=== PATIENT | male | born 1970 | race Caucasian/White ===

== ENCOUNTER 2016-10-20 01:21 | Emergency (ER) | payer OTHER ==
[2016-10-20 01:29] VITALS: RESP 16
[2016-10-20] MEDS ORDERED: DIPH,PERTUS(ACELL)TETVAC-LF 0.5 ML VIAL IM ONE (01:35)
--- NOTE | 2016-10-20 01:37 | ED ---
General Adult HPI - General Chief complaint: Head Injury Stated complaint: fall-etoh Time Seen by Provider: 10/20/16 01:25 Source: patient, RN notes reviewed Mode of arrival: wheelchair Limitations: no limitations - History of Present Illness Initial comments: This is a 45-year-old male presents to the emergency department because he was intoxicated and fell off a barstool hit his head on the ground. According to the friend he was unresponsive for about 5-6 seconds. Patient currently denies any headache patient denies neck pain. However patient is significantly intoxicated. Friend states after he hit his head and got back up he was acting at his baseline except intoxicated. Patient has no other complaints friend states he has not noticed any other injuries as well. - Related Data Allergies Allergy/AdvReac Type Severity Reaction Status Date / Time No Known Allergies Allergy Verified 10/20/16 01:29 Review of Systems ROS Statement: Those systems with pertinent positive or pertinent negative responses have been documented in the HPI. ROS Other: All systems not noted in ROS Statement are negative. Past Medical History Past Medical History: No Reported History History of Any Multi-Drug Resistant Organisms: None Reported Past Surgical History: No Surgical Hx Reported Past Psychological History: No Psychological Hx Reported Smoking Status: Never smoker Past Alcohol Use History: Occasional Past Drug Use History: None Reported General Exam - General Exam Comments Initial Comments: GENERAL: Patient is well-developed and well-nourished. Patient is nontoxic and well- hydrated and is in no acute distress. Patient is intoxicated ENT: Neck is soft and supple. No significant lymphadenopathy is noted. Oropharynx is clear. Moist mucous membranes. Neck has full range of motion without eliciting any pain. EYES: The sclera were anicteric and conjunctiva were pink and moist. Extraocular movements were intact and pupils were equal round and reactive to light. Eyelids were unremarkable. PULMONARY: Unlabored respirations. Good breath sounds bilaterally. CARDIOVASCULAR: There is a regular rate and rhythm without any murmurs gallops or rubs. ABDOMEN: Soft and nontender with normal bowel sounds. No palpable organomegaly was noted. There is no palpable pulsatile mass. SKIN: There is a 3 cm scalp laceration to the right parietal region of the scalp. NEUROLOGIC: Patient is alert and oriented x3. Cranial nerves II through XII are grossly intact. Motor and sensory are also intact. Normal speech, volume and content. Symmetrical smile. MUSCULOSKELETAL: Normal extremities with adequate strength and full range of motion. LYMPHATICS: No significant lymphadenopathy is noted PSYCHIATRIC: Normal psychiatric evaluation. Limitations: no limitations Course Vital Signs 10/20/16 01:22 Temperature 97.4 F L Pulse Rate 73 Respiratory 16 Rate Blood Pressure 153/101 O2 Sat by Pulse 97 Oximetry Procedures - Laceration Laceration #1 Consent Obtained: verbal consent Time Out Performed: Yes Indication: laceration Site: scalp Description: linear, stellate Depth: simple, single layer Pre-repair: wound explored Type of Sutures: other (Staple) Size of Sutures: other (4 stevo) Technique: simple, interrupted Complications: pain Patient Tolerated Procedure: well Medical Decision Making - Medical Decision Making CT of the brain and C-spine were negative. Disposition Clinical Impression: Alcohol intoxication, Scalp laceration, Head injury Instructions: Concussion (ED) Additional Instructions: Stevo should be removed in 7 days Referrals: None,Stated [Primary Care Provider] - 1-2 days Time of Disposition: 02:40
--- NOTE | 2016-10-20 02:28 | CT ---
EXAM: CT Head Without Intravenous Contrast CLINICAL HISTORY: Reason: Pain TECHNIQUE: Axial computed tomography images of the head/brain without intravenous contrast. CTDI is 60.30 mGy and DLP is 1199.00 mGy-cm. This CT exam was performed using one or more of the following dose reduction techniques: automated exposure control, adjustment of the mA and/or kV according to patient size, and/or use of iterative reconstruction technique. COMPARISON: None available. FINDINGS: Brain: Unremarkable. No hemorrhage. No significant white matter disease. No edema. Ventricles: Unremarkable. No ventriculomegaly. Bones/joints: Unremarkable. No acute fracture. Soft tissues: No localizing soft tissue hematoma. Sinuses: Minor scattered paranasal sinus mucosal thickening without air- fluid level. Mastoid air cells: Unremarkable as visualized. No mastoid effusion. IMPRESSION: No acute intracranial sequela from trauma is seen at this time. EXAM: CT Cervical Spine Without Intravenous Contrast CLINICAL HISTORY: Reason: Pain TECHNIQUE: Axial computed tomography images of the cervical spine without intravenous contrast. CTDI is 21.30 mGy and DLP is 43.90 mGy-cm. This CT exam was performed using one or more of the following dose reduction techniques: automated exposure control, adjustment of the mA and/or kV according to patient size, and/or use of iterative reconstruction technique. COMPARISON: No relevant prior studies available. FINDINGS: Vertebrae: There are mild degenerative changes including at the C1- dens level. There is mild reduction of the central canal and foraminal volumes, that may be accentuated by relatively short pedicles. No acute fracture or listhesis. Discs/spinal canal/neural foramina: See above. Soft tissues: Unremarkable. Lung apices: Not included. IMPRESSION: 1. No acute fracture or listhesis is seen. 2. Clinical clearance of the cervical spine is still recommended. 3. Mild cervical spondylosis.
[2016-10-20 03:10] VITALS: BP 148/92; PULSE 64; TEMP 97.6
== END 2016-10-20 03:04 | disposition home or self-care (01) ==
LOC: EC 01:21
DX: S01.01XA Laceration without foreign body of scalp, initial encounter (principal); F10.129 Alcohol abuse with intoxication, unspecified; Z23 Encounter for immunization; W17.89XA Other fall from one level to another, initial encounter
CPT/HCPCS: 12002; 70450; 72125; 90471; 90715; 99284